=== PATIENT | male | born 1925 | race Caucasian/White ===

== ENCOUNTER 2016-05-17 21:00 | Inpatient (IN) | payer MEDICARE, MEDICAID ==
[~2016-05-17] VITALS: Ht 182.9 cm; Wt 77.6 kg
[~2016-05-17 21:00] MED LIST: AMIO200T39 PO; BACI3.5O24 LEFTEYE; DOCU-138 PO; FINA5TAB11 PO; HYDR25TA PO; LISI-604 PO; Metoprolol Tartrate PO; OMEP20CA4 PO; RIVA20TA PO; TAMS0.4C31 PO; TRAV2.5D EACHEYE; XAR15 PO
[2016-05-17] MEDS ORDERED: SODIUM CHLORIDE 0.9% 1000ML BAG (SEPSIS BOLUS) IV ONE (22:00)
[2016-05-17] MEDS ORDERED: VANCOMYCIN 1 G PREMIX 200 ML IV SCH (22:15)
[2016-05-17] MEDS ORDERED: PIPERACILLIN/TAZ 3.375G PREMIX 50 ML IV ONE (22:15)
[2016-05-17 22:33] LABS: BASOPHILS % 0.5 % (0.0-2.0); DIFFERENTIAL COMMENT 0; EOSINOPHILS % 0.9 % (0.0-5.0); HEMATOCRIT. 32.3 % (42.0-52.0); HEMOGLOBIN. 10.4 g/dL (14.0-18.0); LYMPHOCYTES % 17.3 % (20.0-50.0); MEAN CORPUSCULAR HEMOGLOBIN 28.1 pg (28.0-32.0); MEAN CORPUSCULAR HGB CONC 32.1 g/dL (31.0-37.0); MEAN CORPUSCULAR VOLUME 87.3 fL (80.0-94.0); MEAN PLATELET VOLUME 7.4 fl (7.4-10.4); MONOCYTES % 5.4 % (2.0-8.0); NEUTROPHILS % 75.9 % (40.0-76.0); PLATELET 153 x1000/uL (130-400); RED BLOOD CELL COUNT 3.69 mill/uL (4.7-6.1); RED CELL DISTRIBUTION WIDTH 15.8 % (11.6-14.6)
[2016-05-17 22:48] LABS: ALANINE AMINOTRANSFERASE 16 IU/L (13-61); ALBUMIN 1.3 g/dL (3.4-5.0); ANION GAP 8; CALCIUM 7.2 mg/dL (8.5-10.1); CARBON DIOXIDE 33 mEq/L (21-32); CHLORIDE 109 mEq/L (98-107); INDEX HEMOLYSI 1 (1-3); INDEX ICTERIC 1 (1-4); INDEX LIPEMIC 1 (1-3); NT PRO B-TYPE NATRIURETIC PEP 540 pg/mL (5-125); TROPONIN I < 0.02 ng/mL (0.00-0.04); UREA NITROGEN BLOOD 21 mg/dL (7-21); eGFR > 60 mL/min (>60)
[2016-05-18] MEDS ORDERED: ASPIRIN 81MG TABLET GT ONE (00:45)
[2016-05-18 00:46] LABS: CLARITY URINE TURBID (CLEAR); COLOR URINE DARK YELLOW (YELLOW); GLUCOSE URINE NEGATIVE (NEGATIVE); KETONES URINE TRACE (NEGATIVE); LEUKOCYTE ESTERASE URINE 3+ (NEGATIVE); NITRITE URINE POSITIVE (NEGATIVE); OCCULT BLOOD URINE 1+ (NEGATIVE); PROTEIN URINE 1+ (NEGATIVE); SPECIFIC GRAVITY URINE 1.026 (1.005-1.030)
[2016-05-18 01:53] LABS: BACTERIA URINE 4+; COARSE GRANULAR CASTS URINE 0-5 /lpf; RBC URINE 0-2 /hpf (0-2); SQUAMOUS EPITHELIAL CELL URINE NONE SEEN /lpf (RARE/1+); WBC URINE 15-25 /hpf (0-2)
[2016-05-18 04:00] VITALS: BP 138/66
[2016-05-18 05:00] VITALS: BP 138/69
[2016-05-18] MEDS ORDERED: DIPHENHYDRAMINE 50MG/ML VIAL IV PRN (06:45)
[2016-05-18] MEDS ORDERED: NA PHOS,M-B/NA PHOS,DI-BA ENEMA 118ML PR PRN (06:45)
[2016-05-18] MEDS ORDERED: ACETAMINOPHEN 325MG TABLET PO PRN (06:45)
[2016-05-18] MEDS ORDERED: OMEPRAZOLE 20MG CAPSULE EXTENDED RELEASE PO SCH (07:40)
[2016-05-18 08:00] VITALS: BP 99/45
[2016-05-18] MEDS ORDERED: LISINOPRIL 20MG TABLET PO SCH (09:00)
[2016-05-18] MEDS ORDERED: HYDROCHLOROTHIAZIDE 25MG TABLET PO SCH (09:00)
[2016-05-18] MEDS: AMIODARONE HCL 200 MG TABLET PO SCH (09:28)
[2016-05-18 12:00] VITALS: BP 122/68
[2016-05-18] MEDS ORDERED: DEXTROSE 50% WATER 50ML SYRINGE IV PRN (13:45)
[2016-05-18] MEDS: PIPERACILLIN/TAZ 3.375G PREMIX 50 ML IV SCH ×2 (13:56→17:58)
[2016-05-18 16:00] VITALS: BP 91/43
[2016-05-18] MEDS ORDERED: BLOOD SUGAR DIAGNOSTIC STRIP TEST SCH (17:40)
[2016-05-18] MEDS: RIVAROXABAN 20 MG TABLET PO SCH (17:58)
[2016-05-18] MEDS: DIGOXIN 125MCG TABLET PO SCH (17:58)
[2016-05-18] MEDS ORDERED: INSULIN LISPRO 100 UNITS/ML SUBCUT SCH (18:10)
[2016-05-18 20:00] VITALS: BP 94/51
[2016-05-18] MEDS ORDERED: TAMSULOSIN HCL 0.4MG SR CAPSULE PO SCH (21:00)
[2016-05-18] MEDS: FINASTERIDE 5MG TABLET PO SCH (21:14)
[2016-05-19] VITALS (7 sets, daily range): BP systolic 90–110; BP diastolic 43–60
[2016-05-19] MEDS: PIPERACILLIN/TAZ 3.375G PREMIX 50 ML IV SCH ×4 (00:27→18:14)
[2016-05-19 06:45] LABS: CHLORIDE 111 mEq/L (98-107); INDEX HEMOLYSI 1 (1-3); INDEX ICTERIC 1 (1-4); INDEX LIPEMIC 1 (1-3)
[2016-05-19 07:20] LABS: ALANINE AMINOTRANSFERASE 18 IU/L (13-61); ALBUMIN 1.1 g/dL (3.4-5.0); ANION GAP 10; CALCIUM 7.1 mg/dL (8.5-10.1); CARBON DIOXIDE 29 mEq/L (21-32); HDL CHOLESTEROL 18 mg/dL (40-59); LDL CHOLESTEROL 54 mg/dL (5-100); TRIGLYCERIDE 111 mg/dL (0-150); UREA NITROGEN BLOOD 20 mg/dL (7-21); eGFR > 60 mL/min (>60)
[2016-05-19 08:34] LABS: BASOPHILS % 0.2 % (0.0-2.0); HEMATOCRIT. 25.3 % (42.0-52.0); LYMPHOCYTES % 20.3 % (20.0-50.0); MEAN CORPUSCULAR HEMOGLOBIN 28.6 pg (28.0-32.0); MEAN CORPUSCULAR VOLUME 86.7 fL (80.0-94.0); MEAN PLATELET VOLUME 7.6 fl (7.4-10.4); MONOCYTES % 6.3 % (2.0-8.0); NEUTROPHILS % 71.2 % (40.0-76.0); PLATELET 153 x1000/uL (130-400); RED BLOOD CELL COUNT 2.92 mill/uL (4.7-6.1); RED CELL DISTRIBUTION WIDTH 15.9 % (11.6-14.6); WHITE BLOOD COUNT 6.4 x1000/uL (4.5-11.0)
[2016-05-19 08:45] LABS: HEMOGLOBIN. 8.3 g/dL (14.0-18.0)
[2016-05-19] MEDS: AMIODARONE HCL 200 MG TABLET PO SCH (09:47)
[2016-05-19] MEDS: FAMOTIDINE 20MG TABLET PO SCH ×2 (09:48→18:14)
[2016-05-19] MEDS ORDERED: MIDODRINE HCL 5MG TABLET GT SCH (17:00)
[2016-05-19] MEDS: DIGOXIN 125MCG TABLET PO SCH (18:14)
[2016-05-19] MEDS: RIVAROXABAN 20 MG TABLET PO SCH (18:14)
[2016-05-19] MEDS: FINASTERIDE 5MG TABLET PO SCH (20:50)
[2016-05-20] MEDS: PIPERACILLIN/TAZ 3.375G PREMIX 50 ML IV SCH ×4 (00:18→17:16)
[2016-05-20 04:00] VITALS: BP 114/61
[2016-05-20 06:28] LABS: ANION GAP 11; CALCIUM 7.2 mg/dL (8.5-10.1); CARBON DIOXIDE 29 mEq/L (21-32); CHLORIDE 111 mEq/L (98-107); INDEX HEMOLYSI 1 (1-3); INDEX ICTERIC 1 (1-4); INDEX LIPEMIC 1 (1-3); MAGNESIUM 2.2 mg/dL (1.8-2.4); UREA NITROGEN BLOOD 19 mg/dL (7-21); eGFR > 60 mL/min (>60)
[2016-05-20 08:00] VITALS: BP 98/48
[2016-05-20] MEDS: AMIODARONE HCL 200 MG TABLET PO SCH (09:37)
[2016-05-20] MEDS: FAMOTIDINE 20MG TABLET PO SCH ×2 (09:37→16:02)
[2016-05-20 12:00] VITALS: BP 95/42
[2016-05-20] MEDS: MIDODRINE HCL 5MG TABLET GT SCH ×2 (13:46→22:55)
[2016-05-20] MEDS ORDERED: ALBUMIN HUMAN 12.5GM/50ML (25%) IV NR (14:00)
[2016-05-20 16:00] VITALS: BP 111/56
[2016-05-20] MEDS: RIVAROXABAN 20 MG TABLET PO SCH (16:02)
[2016-05-20 17:16] LABS: BASOPHILS % 0.3 % (0.0-2.0); EOSINOPHILS % 1.5 % (0.0-5.0); HEMATOCRIT. 25.8 % (42.0-52.0); HEMOGLOBIN. 8.4 g/dL (14.0-18.0); LYMPHOCYTES % 26.6 % (20.0-50.0); MEAN CORPUSCULAR HEMOGLOBIN 28.5 pg (28.0-32.0); MEAN CORPUSCULAR HGB CONC 32.4 g/dL (31.0-37.0); MEAN PLATELET VOLUME 7.3 fl (7.4-10.4); MONOCYTES % 8.2 % (2.0-8.0); NEUTROPHILS % 63.4 % (40.0-76.0); PLATELET 187 x1000/uL (130-400); RED BLOOD CELL COUNT 2.93 mill/uL (4.7-6.1); WHITE BLOOD COUNT 7.5 x1000/uL (4.5-11.0)
[2016-05-20] MEDS: DIGOXIN 125MCG TABLET PO SCH (17:16)
[2016-05-20 17:17] LABS: DIFFERENTIAL COMMENT 1
[2016-05-20 17:34] LABS: PREALBUMIN 9.1 mg/dL (20.0-40.0)
[2016-05-20 17:42] LABS: INDEX HEMOLYSI 1 (1-3)
[2016-05-20 17:47] LABS: FERRITIN 815 ng/mL (22-322)
[2016-05-20 17:58] LABS: VITAMIN B12 SERUM 959 pg/mL (211-911)
[2016-05-20 20:00] VITALS: BP 128/66
[2016-05-20] MEDS: FINASTERIDE 5MG TABLET PO SCH (22:55)
[2016-05-21] VITALS (12 sets, daily range): BP systolic 102–123; BP diastolic 45–88
[2016-05-21] MEDS: PIPERACILLIN/TAZ 3.375G PREMIX 50 ML IV SCH ×3 (00:29→13:32)
[2016-05-21] MEDS: MIDODRINE HCL 5MG TABLET GT SCH ×3 (05:32→20:58)
[2016-05-21 07:01] LABS: HEMATOCRIT. 23.3 % (42.0-52.0); HEMOGLOBIN. 7.6 g/dL (14.0-18.0); MEAN CORPUSCULAR HEMOGLOBIN 28.7 pg (28.0-32.0); MEAN CORPUSCULAR HGB CONC 32.8 g/dL (31.0-37.0); MEAN CORPUSCULAR VOLUME 87.3 fL (80.0-94.0); MEAN PLATELET VOLUME 7.5 fl (7.4-10.4); PLATELET 183 x1000/uL (130-400); RED BLOOD CELL COUNT 2.66 mill/uL (4.7-6.1); RED CELL DISTRIBUTION WIDTH 15.8 % (11.6-14.6); WHITE BLOOD COUNT 6.9 x1000/uL (4.5-11.0)
[2016-05-21 07:13] LABS: DIFFERENTIAL COMMENT 1
[2016-05-21 07:44] LABS: ANION GAP 9; CALCIUM 7.2 mg/dL (8.5-10.1); CARBON DIOXIDE 28 mEq/L (21-32); CHLORIDE 111 mEq/L (98-107); INDEX HEMOLYSI 1 (1-3); INDEX ICTERIC 1 (1-4); INDEX LIPEMIC 1 (1-3); MAGNESIUM 2.1 mg/dL (1.8-2.4); UREA NITROGEN BLOOD 18 mg/dL (7-21)
[2016-05-21 07:45] LABS: eGFR > 60 mL/min (>60)
[2016-05-21] MEDS: AMIODARONE HCL 200 MG TABLET PO SCH (09:18)
[2016-05-21] MEDS: FAMOTIDINE 20MG TABLET PO SCH ×2 (09:18→16:19)
[2016-05-21 09:41] LABS: PLATELET ESTIMATE NORMAL
[2016-05-21] MEDS ORDERED: GENTAMICIN 100MG PREMIX 100 ML IV SCH (14:00)
[2016-05-21] MEDS: RIVAROXABAN 20 MG TABLET PO SCH (16:19)
[2016-05-21] MEDS: GENTAMICIN 120MG PREMIX 100 ML IV SCH (16:20)
[2016-05-21] MEDS: DIGOXIN 125MCG TABLET PO SCH (18:00)
[2016-05-21] MEDS: FINASTERIDE 5MG TABLET PO SCH (20:58)
[2016-05-22] VITALS (10 sets, daily range): BP systolic 91–131; BP diastolic 64–86
[2016-05-22] MEDS: MIDODRINE HCL 5MG TABLET GT SCH ×3 (06:28→21:16)
[2016-05-22] MEDS: GENTAMICIN 120MG PREMIX 100 ML IV SCH (09:06)
[2016-05-22] MEDS: FAMOTIDINE 20MG TABLET PO SCH ×2 (09:07→17:33)
[2016-05-22] MEDS: AMIODARONE HCL 200 MG TABLET PO SCH (09:07)
[2016-05-22 09:42] LABS: HEMATOCRIT. 29.6 % (42.0-52.0); HEMOGLOBIN. 9.8 g/dL (14.0-18.0); MEAN CORPUSCULAR HEMOGLOBIN 28.9 pg (28.0-32.0); MEAN CORPUSCULAR VOLUME 87.4 fL (80.0-94.0); MEAN PLATELET VOLUME 7.4 fl (7.4-10.4); PLATELET 197 x1000/uL (130-400); RED BLOOD CELL COUNT 3.38 mill/uL (4.7-6.1); RED CELL DISTRIBUTION WIDTH 15.7 % (11.6-14.6); WHITE BLOOD COUNT 7.1 x1000/uL (4.5-11.0)
[2016-05-22 09:47] LABS: DIFFERENTIAL COMMENT 1
[2016-05-22 10:01] LABS: ALANINE AMINOTRANSFERASE 20 IU/L (13-61); ALBUMIN 1.3 g/dL (3.4-5.0); ANION GAP 8; CALCIUM 7.2 mg/dL (8.5-10.1); CARBON DIOXIDE 28 mEq/L (21-32); CHLORIDE 110 mEq/L (98-107); INDEX HEMOLYSI 2 (1-3); INDEX ICTERIC 1 (1-4); INDEX LIPEMIC 1 (1-3); MAGNESIUM 2.3 mg/dL (1.8-2.4); UREA NITROGEN BLOOD 15 mg/dL (7-21); eGFR > 60 mL/min (>60)
[2016-05-22 13:49] LABS: PLATELET ESTIMATE NORMAL
[2016-05-22] MEDS: RIVAROXABAN 20 MG TABLET PO SCH (17:33)
[2016-05-22] MEDS: DIGOXIN 125MCG TABLET PO SCH (17:33)
[2016-05-22] MEDS: FINASTERIDE 5MG TABLET PO SCH (21:16)
[2016-05-23] VITALS (7 sets, daily range): BP systolic 97–117; BP diastolic 41–74
[2016-05-23] MEDS: MIDODRINE HCL 5MG TABLET GT SCH ×2 (05:56→16:57)
[2016-05-23 06:38] LABS: BASOPHILS % 0.2 % (0.0-2.0); DIFFERENTIAL COMMENT 0; EOSINOPHILS % 2.2 % (0.0-5.0); HEMATOCRIT. 29.9 % (42.0-52.0); HEMOGLOBIN. 9.9 g/dL (14.0-18.0); MEAN CORPUSCULAR HEMOGLOBIN 29.3 pg (28.0-32.0); MEAN CORPUSCULAR HGB CONC 33.1 g/dL (31.0-37.0); MEAN CORPUSCULAR VOLUME 88.5 fL (80.0-94.0); MEAN PLATELET VOLUME 7.3 fl (7.4-10.4); MONOCYTES % 6.3 % (2.0-8.0); NEUTROPHILS % 71.3 % (40.0-76.0); PLATELET 196 x1000/uL (130-400); RED BLOOD CELL COUNT 3.38 mill/uL (4.7-6.1); RED CELL DISTRIBUTION WIDTH 15.8 % (11.6-14.6); WHITE BLOOD COUNT 7.3 x1000/uL (4.5-11.0)
[2016-05-23 07:08] LABS: ANION GAP 8; CALCIUM 7.4 mg/dL (8.5-10.1); CARBON DIOXIDE 30 mEq/L (21-32); CHLORIDE 105 mEq/L (98-107); INDEX HEMOLYSI 1 (1-3); INDEX ICTERIC 1 (1-4); INDEX LIPEMIC 1 (1-3); UREA NITROGEN BLOOD 16 mg/dL (7-21); eGFR > 60 mL/min (>60)
[2016-05-23 09:06] LABS: FOLATE HEMATOCRIT 24.7 % (37.5-51.0)
[2016-05-23] MEDS: AMIODARONE HCL 200 MG TABLET PO SCH (09:35)
[2016-05-23] MEDS: GENTAMICIN 120MG PREMIX 100 ML IV SCH (09:35)
[2016-05-23] MEDS: FAMOTIDINE 20MG TABLET PO SCH ×2 (09:35→16:56)
[2016-05-23] MEDS: RIVAROXABAN 20 MG TABLET PO SCH (16:56)
[2016-05-23] MEDS: DIGOXIN 125MCG TABLET PO SCH (16:56)
[2016-05-24 14:21] LABS: FOLATE HEMOLYSATE 350.9 ng/mL (Not Estab.); FOLATE RBC 1421 ng/mL (>498)
[2016-05-25 04:16] LABS: OVA & PARASITE EXAM Final report (.)
== END 2016-05-23 18:50 | DRG 871 ==
LOC: ER 21:01 → 7WST 05-18 01:29
PROVIDERS: ADMIT Internal Medicine; ATTEND Internal Medicine
PROC: 30233N1 Transfusion of Nonautologous Red Blood Cells into Peripheral Vein, Percutaneous Approach (ICD-10-PCS; principal; 2016-05-21)
DX: A41.9 Sepsis, unspecified organism (principal); J18.9 Pneumonia, unspecified organism; J96.00 Acute respiratory failure, unspecified whether with hypoxia or hypercapnia; E43 Unspecified severe protein-calorie malnutrition; N39.0 Urinary tract infection, site not specified; I50.9 Heart failure, unspecified; D63.8 Anemia in other chronic diseases classified elsewhere; H26.9 Unspecified cataract; Z68.23 Body mass index [BMI] 23.0-23.9, adult; H54.41 Blindness, right eye, normal vision left eye; I25.10 Atherosclerotic heart disease of native coronary artery without angina pectoris; I44.0 Atrioventricular block, first degree; Z96.642 Presence of left artificial hip joint; I45.10 Unspecified right bundle-branch block; I48.0 Paroxysmal atrial fibrillation; K29.70 Gastritis, unspecified, without bleeding; L89.159 Pressure ulcer of sacral region, unspecified stage; R91.8 Other nonspecific abnormal finding of lung field; I11.0 Hypertensive heart disease with heart failure; I80.9 Phlebitis and thrombophlebitis of unspecified site; J45.909 Unspecified asthma, uncomplicated; K44.9 Diaphragmatic hernia without obstruction or gangrene; M17.0 Bilateral primary osteoarthritis of knee; N40.0 Benign prostatic hyperplasia without lower urinary tract symptoms; Z79.899 Other long term (current) drug therapy; Z86.718 Personal history of other venous thrombosis and embolism; Z93.1 Gastrostomy status; Z98.890 Other specified postprocedural states; Z79.01 Long term (current) use of anticoagulants
CPT/HCPCS: 36415; 43760; 71010; 80048; 80053; 80061; 80170; 81001; 82270; 82607; 82728; 82747; 83540; 83550; 83605; 83735; 83880; 84134; 84484; 85014; 85025; 86850; 86900; 86920; 87015; 87040; 87045; 87077; 87086; 87177; 87186; 87209; 87427; 87449; 87493; 93005; 96365; 96366; 96367; 96375; 99285; A6261; C1893; J1580; J2543; J3370; J7030; J7040; J7050; P9016; P9047

== ENCOUNTER 2017-01-21 14:49 | Inpatient (IN) | payer MEDICARE, MEDICAID ==
[~2017-01-21] VITALS: Ht 170.2 cm; Wt 78.9 kg
[~2017-01-21 14:49] MED LIST changes: +AMI2 PO; -AMIO200T39 PO
[2017-01-21 15:56] LABS: BASOPHILS % 0.5 % (0.0-2.0); EOSINOPHILS % 1.5 % (0.0-5.0); HEMATOCRIT. 29.7 % (42.0-52.0); HEMOGLOBIN. 9.8 g/dL (14.0-18.0); LYMPHOCYTES % 13.2 % (20.0-50.0); MEAN CORPUSCULAR HEMOGLOBIN 27.2 pg (28.0-32.0); MEAN CORPUSCULAR VOLUME 82.2 fL (80.0-94.0); MEAN PLATELET VOLUME 7.4 fl (7.4-10.4); MONOCYTES % 9.1 % (2.0-8.0); NEUTROPHILS % 75.7 % (40.0-76.0); PLATELET 388 x1000/uL (130-400); RED BLOOD CELL COUNT 3.62 mill/uL (4.7-6.1); RED CELL DISTRIBUTION WIDTH 16.8 % (11.6-14.6)
[2017-01-21 16:01] LABS: CHLORIDE 105 mEq/L (98-107)
[2017-01-21 16:02] LABS: INR 1.2; PROTHROMBIN TIME 12.2 sec (9.4-11.6)
[2017-01-21 16:09] LABS: CARBON DIOXIDE 31 mEq/L (21-32)
[2017-01-21] MEDS ORDERED: ONDANSETRON HCL 4MG/2ML VIAL IV PRN (17:00)
[2017-01-21] MEDS ORDERED: LORAZEPAM 2MG/ML CPJ IV PRN (17:00)
[2017-01-21] MEDS ORDERED: IPRATROPIUM/ALBUTEROL 0.5-3(2.5)MG/3ML NEB INH PRN (17:00)
[2017-01-21] MEDS ORDERED: HYDRALAZINE 20MG/ML VIAL IV PRN (17:00)
[2017-01-21] MEDS ORDERED: ACETAMINOPHEN 650MG SUPP PR PRN (17:00)
[2017-01-21] MEDS ORDERED: MORPHINE SULFATE 2 MG/ML CPJ (NOT FOR IM USE) IV PRN (17:00)
[2017-01-21] MEDS ORDERED: NITROGLYCERIN 0.4MG TABLET SL SL PRN (17:00)
[2017-01-21 17:54] LABS: T4 FREE 1.13 ng/dL (0.76-1.46)
[2017-01-21 18:16] LABS: VITAMIN B12 SERUM 756 pg/mL (211-911)
[2017-01-21 18:39] LABS: FOLIC ACID (FOLATE) SERUM > 20.00 ng/mL (>5.38)
[2017-01-21 20:00] VITALS: BP 133/55
[2017-01-21] MEDS ORDERED: HYDRALAZINE 10 MG in SODIUM CHLORIDE 0.9% 50 ML IV PRN (20:30)
[2017-01-21 21:00] VITALS: BP 135/55
[2017-01-21] MEDS: FAMOTIDINE 20MG/2ML VIAL IV SCH (22:06)
[2017-01-21] MEDS: CEFTRIAXONE 1 G PREMIX 50 ML IV SCH (22:06)
[2017-01-21] MEDS: DEXT 5%/0.45% NACL 1000ML 1,000 ML IV SCH (22:50)
[2017-01-22] VITALS (7 sets, daily range): BP systolic 119–145; BP diastolic 54–59
[2017-01-22] MEDS: ENOXAPARIN 40MG/0.4ML SYR SUBCUT SCH (09:00)
[2017-01-22] MEDS: FAMOTIDINE 20MG/2ML VIAL IV SCH ×2 (09:59→21:09)
[2017-01-22] MEDS ORDERED: SODIUM CHLORIDE 0.9% 10ML VIAL ONE (10:28)
[2017-01-22] MEDS ORDERED: SIMETHICONE 40 MG/0.6 ML 30ML ONE (10:28)
[2017-01-22] MEDS: PANTOPRAZOLE SODIUM 40 MG/VIAL IV SCH (10:44)
[2017-01-22 10:59] LABS: INR 1.1; PARTIAL THROMBOPLASTIN TIME 31.1 sec (23.4-31.0); PROTHROMBIN TIME 11.6 sec (9.4-11.6)
[2017-01-22] MEDS ORDERED: CEFAZOLIN 1000MG PREMIX 50 ML IV NR (14:00)
[2017-01-22] MEDS ORDERED: FENTANYL CITRATE/PF 50MCG/ML 2ML VIAL ONE (16:22)
[2017-01-22] MEDS ORDERED: MIDAZOLAM HCL 5 MG/5 ML VIAL ONE (16:22)
[2017-01-22] MEDS ORDERED: FENTANYL CITRATE/PF 50MCG/ML 2ML VIAL IV PRN (16:26)
[2017-01-22] MEDS ORDERED: MIDAZOLAM HCL 5 MG/5 ML VIAL IV PRN (16:26)
[2017-01-22] MEDS: DEXT 5%/0.45% NACL 1000ML 1,000 ML IV SCH (21:21)
[2017-01-23] VITALS: BP 133/60
[2017-01-23] MEDS: CEFTRIAXONE 1 G PREMIX 50 ML IV SCH (00:39)
[2017-01-23] MEDS: DEXT 5%/0.45% NACL 1000ML 1,000 ML IV SCH ×2 (00:40→12:45)
[2017-01-23 04:00] VITALS: BP 144/57
[2017-01-23 08:00] VITALS: BP 148/59
[2017-01-23] MEDS: ENOXAPARIN 40MG/0.4ML SYR SUBCUT SCH (08:49)
[2017-01-23] MEDS: FAMOTIDINE 20MG/2ML VIAL IV SCH ×2 (08:49→21:48)
[2017-01-23] MEDS: PANTOPRAZOLE SODIUM 40 MG/VIAL IV SCH (08:49)
[2017-01-23] MEDS ORDERED: DIGO125T82 PO (10:07)
[2017-01-23] MEDS: AMIODARONE HCL 200 MG TABLET PO SCH (10:15)
[2017-01-23] MEDS ORDERED: OMEPRAZOLE 20MG CAPSULE EXTENDED RELEASE PO SCH (10:15)
[2017-01-23] MEDS ORDERED: MIDODRINE HCL 5MG TABLET PO SCH (10:15)
[2017-01-23] MEDS ORDERED: BISACODYL 5MG TABLET PO PRN (10:15)
[2017-01-23] MEDS ORDERED: DOCUSATE SODIUM 100MG CAPSULE PO PRN (10:15)
[2017-01-23] MEDS ORDERED: MIDO5TAB PO (10:19)
[2017-01-23] MEDS ORDERED: ERGO500013 PO (10:19)
[2017-01-23] MEDS ORDERED: BRIN8DRO OP (10:19)
[2017-01-23] MEDS ORDERED: BISA-81 PO (10:19)
[2017-01-23] MEDS ORDERED: FAMO20TA8 PO (10:19)
[2017-01-23] MEDS ORDERED: TRAV2.5D OP (10:19)
[2017-01-23 12:00] VITALS: BP 140/60
[2017-01-23] MEDS: DIGOXIN 125MCG TABLET PO SCH (14:01)
[2017-01-23] MEDS: HYDROCHLOROTHIAZIDE 25MG TABLET PO SCH (14:01)
[2017-01-23 16:00] VITALS: BP 132/53
[2017-01-23] MEDS ORDERED: RIVAROXABAN 15 MG TABLET PO SCH (17:50)
[2017-01-23 20:00] VITALS: BP 149/62
[2017-01-23] MEDS ORDERED: TAMSULOSIN HCL 0.4MG SR CAPSULE PO SCH (21:00)
[2017-01-23] MEDS ORDERED: FINASTERIDE 5MG TABLET PO SCH (21:00)
[2017-01-24] VITALS (7 sets, daily range): BP systolic 125–150; BP diastolic 55–87
[2017-01-24] MEDS ORDERED: CEFTRIAXONE 1 G PREMIX 50 ML IV SCH
[2017-01-24] MEDS: DEXT 5%/0.45% NACL 1000ML 1,000 ML IV SCH (03:33)
[2017-01-24] MEDS: HYDROCHLOROTHIAZIDE 25MG TABLET PO SCH (09:00)
[2017-01-24] MEDS ORDERED: LISINOPRIL 20MG TABLET PO SCH (09:00)
[2017-01-24] MEDS: AMIODARONE HCL 200 MG TABLET PO SCH (09:00)
[2017-01-24] MEDS: PANTOPRAZOLE SODIUM 40 MG/VIAL IV SCH (09:27)
[2017-01-24] MEDS: FAMOTIDINE 20MG/2ML VIAL IV SCH (09:27)
[2017-01-24] MEDS: DIGOXIN 125MCG TABLET PO SCH (09:27)
[2017-01-24] MEDS ORDERED: RIVAROXABAN 20 MG TABLET PO SCH (17:00)
[2017-01-29] MEDS ORDERED: ERGOCALCIFEROL 50000UNITS CAPSULE PO SCH (09:00)
== END 2017-01-24 23:01 | DRG 393 ==
LOC: ER 14:53 → 6EST 16:23 → EDBEDREQ 16:25 → EDBEDREQTM 16:25 → SUPCPDRO 16:39 → ENRESERV 19:20
PROVIDERS: ADMIT Internal Medicine; ATTEND Internal Medicine
PROC: 0D20XUZ Change Feeding Device in Upper Intestinal Tract, External Approach (ICD-10-PCS; principal; 2017-01-22 16:30)
DX: K94.23 Gastrostomy malfunction (principal); G93.40 Encephalopathy, unspecified; E43 Unspecified severe protein-calorie malnutrition; I48.91 Unspecified atrial fibrillation; R13.12 Dysphagia, oropharyngeal phase; F03.90 Unspecified dementia, unspecified severity, without behavioral disturbance, psychotic disturbance, mood disturbance, and anxiety; D63.8 Anemia in other chronic diseases classified elsewhere; Z96.649 Presence of unspecified artificial hip joint; K21.9 Gastro-esophageal reflux disease without esophagitis; I10 Essential (primary) hypertension; I25.10 Atherosclerotic heart disease of native coronary artery without angina pectoris; Y83.3 Surgical operation with formation of external stoma as the cause of abnormal reaction of the patient, or of later complication, without mention of misadventure at the time of the procedure; Z86.711 Personal history of pulmonary embolism; Z86.73 Personal history of transient ischemic attack (TIA), and cerebral infarction without residual deficits; Z86.718 Personal history of other venous thrombosis and embolism; Z85.828 Personal history of other malignant neoplasm of skin; Z68.27 Body mass index [BMI] 27.0-27.9, adult; Y92.89 Other specified places as the place of occurrence of the external cause
CPT/HCPCS: 36415; 80053; 82607; 82746; 83540; 83550; 84439; 84443; 85025; 85610; 85730; 87086; 93970; 99285; A4216; A6261; C9113; J0690; J0696; J1650; J2250; J3010; J3490; J7042